=== PATIENT | male | born 1990 | race Hispanic/Latino ===

== ENCOUNTER 2019-10-20 19:18 | Emergency (ER) | payer OTHER, SELFPAY ==
--- NOTE | ~2019-10-20 | XR_ITS ---
EXAMINATION: XR abdomen obstructive series DATE: 10/20/2019 20:28 INDICATION: Abdominal pain and constipation. TECHNIQUE: Upright and supine views of the abdomen were obtained. COMPARISON: None. FINDINGS: There are no dilated loops of bowel. There is a large volume of stool in the colon. No free intraperitoneal gas. IMPRESSION: 1. Large volume of stool in the colon. Reviewed, dictated and finalized at location A.
[2019-10-20 19:25] VITALS: BP 109/64; PULSE 95; RESP 20; TEMP 37.1; O2SAT 99
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
[2019-10-20 20:21] LABS: Add Urine Microscopic? YES; Appearance Urine Cloudy (Clear); Bilirubin Urine Negative (Negative); Blood Urine Negative (Negative); Color Urine Yellow (Yellow); Glucose Urine UA Negative (Negative); Ketones Urine Trace (Negative); Leukocyte Esterase Ur 2+ LEU/UL (Negative); Nitrate Urine Positive (Negative); Protein Urine Negative (Negative); Specific Grav Ur 1.015 (1.010-1.020); Urobilinogen Urine 0.2 mg/dL (0.2-1.0); pH Urine 7.5 (5.0-8.0)
[2019-10-20] MEDS: BACLOFEN 10 MG TABLET PO (20:35)
[2019-10-20 20:39] LABS: Basophils Absolute Auto 0.09 K/mm3 (0.00-0.10); Eosinophils Absolute Auto 0.28 K/mm3 (0.02-0.50); Eosinophils Percent Auto 3.1 % (1.0-6.0); Hematocrit 38.6 % (40.0-54.0); Hemoglobin 13.2 g/dL (14.0-18.0); Immature Granulocyte Absolute 0.02 K/mm3 (0.00-0.00); Immature Granulocyte Percent A 0.2 % (0.0-0.0); Lymphocytes Absolute Auto 4.24 K/mm3 (1.10-4.50); Lymphocytes Percent Auto 46.2 % (18.0-42.0); Mean Corpuscular HGB Conc 34.2 g/dL (32.0-36.0); Mean Corpuscular Hemoglobin 30.5 pg (27.0-31.0); Mean Corpuscular Volume 89.1 fL (78.0-102.0); Mean Platelet Volume 9.5 fl (8.7-11.0); Monocytes Absolute Auto 0.78 K/mm3 (0.10-0.90); Monocytes Percent Auto 8.5 % (2.0-11.0); Neutrophils Absolute Auto 3.8 K/mm3 (1.7-7.2); Platelet Count Result 270 K/mm3 (150-420); Red Blood Count 4.33 M/mm3 (4.70-6.10); Red Cell Distribution Width 11.9 % (11.6-14.4); White Blood Count 9.2 K/mm3 (4.8-10.8)
[2019-10-20 20:50] LABS: RBC Urine None seen /hpf (0-2); Squamous Epithelial Cell Urine Rare /hpf (Few); Triple Phosphate Crystal Urine Present /hpf
[2019-10-20 20:51] LABS: Amorphous Sediment Urine Moderate; Bacteria Urine 4+ /hpf; Mucus Urine Few /lpf
[2019-10-20 20:55] LABS: Alanine Aminotransferase 20 U/L (16-63); Albumin Level 4.5 g/dL (3.4-5.0); Alkaline Phosphatase 71 U/L (46-116); Anion Gap 10 mmol/L (8-16); Aspartate Amino Transferase 13 U/L (15-37); Bilirubin,Total 0.6 mg/dL (0.00-1.00); Blood Urea Nitrogen 10 mg/dL (7-18); CRP < 0.5 mg/dL (0.0-0.9); Calcium 9.2 mg/dL (8.5-10.1); Carbon Dioxide 26 mmol/L (21-32); Chloride 101 mmol/L (98-108); Estimated Glomerular Filt Rate > 60; Glucose 107 mg/dL (70-99); Lipase 57 U/L (73-393); Osmolality Calculated 283 mOsm/kg (285-295); Potassium 3.7 mmol/L (3.5-5.1); Sodium 137 mmol/L (136-145); Total Protein 7.4 g/dL (6.4-8.2)
[2019-10-20 20:56] LABS: Amphetamine Screen Urine Positive (Negative); Barbiturate Screen Urine Negative (Negative); Benzodiazepines Screen Urine Negative (Negative); Cannabinoid Screen Urine Negative (Negative); Cocaine Screen Urine Negative (Negative); Methadone Screen Urine Negative (Negative); Opiate Screen Urine Positive (Negative); Phencyclidine Screen Urine Negative (Negative)
[2019-10-20 21:00] LABS: Lactic Acid Reflex 0.7 mmol/L (0.4-2.0)
--- NOTE | 2019-10-20 21:42 | PC.NURSE ---
PT REFUSING IV ACCESS
--- NOTE | 2019-10-20 22:39 | PC.NURSE ---
pt signed out AMA. iv antibiotics stopped. iv access removed.
[2019-10-20 22:42] VITALS: RESP 20; O2SAT 100
== END 2019-10-20 22:44 | disposition home or self-care (01) ==
PROVIDERS: Emergency Provider Emergency Medicine
DX: N39.0 Urinary tract infection, site not specified (principal)
CPT/HCPCS: 36415; 74019; 80053; 80307; 81001; 83605; 83690; 85025; 86140; 87040; 87077; 87086; 87088; 87186; 96365; 99284; A9270; J1956

== ENCOUNTER 2019-11-17 21:23 | Emergency (ER) | payer SELFPAY | END 2019-11-17 21:24 | disposition home or self-care (01) | LOC: CHSED 11-18 13:02 | PROVIDERS: Emergency Provider Emergency Medicine | DX: Z53.8 Procedure and treatment not carried out for other reasons (principal) | CPT/HCPCS: 99199; A9270 ==

== ENCOUNTER 2019-11-17 21:30 | Emergency (ER) | payer OTHER, SELFPAY ==
[2019-11-17 21:45] VITALS: BP 133/86; PULSE 81; RESP 18; TEMP 36.8; O2SAT 99
--- NOTE | 2019-11-17 22:29 | PC.NURSE ---
this rn knocked on pts door to give pt medications that were ordered. pt requesting a minute and requests staff to come back.
--- NOTE | 2019-11-17 22:30 | PC.NURSE ---
Per edp administer lorazepam injection and hold toradol if lorazepam isn't effective.
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
--- NOTE | 2019-11-17 22:35 | PC.NURSE ---
attempted to administer medications ordered for pt. pt continues on phone and again asks this rn to come back in a few minutes.
[2019-11-17] MEDS: LORazepam INJ (*CRX) 2 MG/ML VIAL 1 MG IM (22:50)
--- NOTE | 2019-11-17 22:50 | PC.NURSE ---
Pt continues to talk on telephone.
[2019-11-17 22:54] LABS: Basophils Percent Auto 1.1 % (0.0-1.0); Eosinophils Absolute Auto 0.38 K/mm3 (0.02-0.50); Eosinophils Percent Auto 4.4 % (1.0-6.0); Hematocrit 39.2 % (40.0-54.0); Hemoglobin 13.4 g/dL (14.0-18.0); Immature Granulocyte Absolute 0.02 K/mm3 (0.00-0.00); Immature Granulocyte Percent A 0.2 % (0.0-0.0); Lymphocytes Absolute Auto 2.76 K/mm3 (1.10-4.50); Lymphocytes Percent Auto 31.6 % (18.0-42.0); Mean Corpuscular HGB Conc 34.2 g/dL (32.0-36.0); Mean Corpuscular Hemoglobin 30.9 pg (27.0-31.0); Mean Corpuscular Volume 90.5 fL (78.0-102.0); Mean Platelet Volume 9.5 fl (8.7-11.0); Monocytes Absolute Auto 0.79 K/mm3 (0.10-0.90); Neutrophils Absolute Auto 4.7 K/mm3 (1.7-7.2); Neutrophils Percent Auto 53.7 % (50.0-70.0); Platelet Count Result 239 K/mm3 (150-420); Red Blood Count 4.33 M/mm3 (4.70-6.10); Red Cell Distribution Width 12.3 % (11.6-14.4); White Blood Count 8.7 K/mm3 (4.8-10.8)
--- NOTE | 2019-11-17 22:55 | PC.NURSE ---
Upon administration of im injection of ativan, pt grabbed nurses arm. Pt asked to please not grab the staff especially when we are handling needles. Pt apologetic and states he is scared of needles. Pt requesting mother to be able to come in room with him.
--- NOTE | 2019-11-17 22:58 | PC.NURSE ---
pt self catheterizes. pt requests to self cath for urine sample.
--- NOTE | 2019-11-17 23:03 | PC.NURSE ---
report to trisha griffin
[2019-11-17 23:10] LABS: Add Urine Microscopic? YES; Appearance Urine Cloudy (Clear); Bilirubin Urine 1+ (Negative); Blood Urine Negative (Negative); Color Urine Yellow (Yellow); Glucose Urine UA Negative (Negative); Ketones Urine Trace (Negative); Leukocyte Esterase Ur 1+ (Negative); Nitrate Urine Positive (Negative); Protein Urine Negative (Negative); Specific Grav Ur 1.025 (1.010-1.020)
[2019-11-17 23:12] LABS: D Dimer 0.89 mg/L (0.19-0.50)
[2019-11-17 23:14] LABS: Alanine Aminotransferase 20 U/L (16-63); Albumin Level 4.1 g/dL (3.4-5.0); Alkaline Phosphatase 64 U/L (46-116); Anion Gap 10 mmol/L (8-16); Aspartate Amino Transferase 11 U/L (15-37); Bilirubin,Total 0.4 mg/dL (0.00-1.00); Blood Urea Nitrogen 10 mg/dL (7-18); Carbon Dioxide 28 mmol/L (21-32); Chloride 106 mmol/L (98-108); Estimated CRCL calculation 133 ml/min; Estimated Glomerular Filt Rate > 60; Glucose 104 mg/dL (70-99); Osmolality Calculated 297 mOsm/kg (285-295); Potassium 3.7 mmol/L (3.5-5.1); Sodium 144 mmol/L (136-145); Total Protein 6.9 g/dL (6.4-8.2)
[2019-11-17 23:16] LABS: Bacteria Urine 4+ /hpf; RBC Urine None seen /hpf (0-2); Squamous Epithelial Cell Urine Few /hpf (Few); WBC Urine 31-50 /hpf (0-3)
[2019-11-17 23:17] LABS: Mucus Urine Few /lpf
[2019-11-17 23:55] VITALS: BP 130/80; PULSE 72; RESP 18; O2SAT 97
[2019-11-18] MEDS: LORazepam (*CRX) 1 MG TABLET PO (00:04)
== END 2019-11-18 00:30 | disposition home or self-care (01) ==
PROVIDERS: Emergency Provider Emergency Medicine
DX: N39.0 Urinary tract infection, site not specified (principal); M62.838 Other muscle spasm
CPT/HCPCS: 36415; 80053; 81001; 85025; 85380; 96372; 99282; 99283; A9270; J2060

== ENCOUNTER 2019-11-21 09:41 | Outpatient (CLI) | payer OTHER, SELFPAY ==
--- NOTE | ~2019-11-21 | US_ITS ---
EXAMINATION: US venous doppler [facility] DATE: 11/21/2019 11:13 INDICATION: Lower limb pain. TECHNIQUE: Grayscale ultrasound images without and with compression and Doppler ultrasound images of the bilateral lower extremity veins were obtained. COMPARISON: None. FINDINGS: The visualized portions of right common femoral vein, profunda (deep) femoral vein, femoral vein, pop liteal vein, peroneal veins, posterior tibial veins, and greater saphenous vein outflow are patent. The visualized portions of left common femoral vein, profunda femoral vein, femoral vein, popliteal v ein, peroneal veins, posterior tibial veins, and greater saphenous vein outflow are patent. IMPRESSION: 1. No deep venous thrombosis. Reviewed, dictated and finalized at location A.
== END 2019-11-21 09:42 | disposition home or self-care (01) ==
LOC: CHSIMG 09:44
PROVIDERS: PCP Family Medicine; Visit Provider Family Medicine
DX: R79.1 Abnormal coagulation profile (principal); R10.30 Lower abdominal pain, unspecified; G82.20 Paraplegia, unspecified
CPT/HCPCS: 93970